=== PATIENT | female | born 1985 | race Caucasian/White ===

== ENCOUNTER → 2020-04-18 08:33 | Outpatient (CLI) | payer OTHER, SELFPAY ==
--- NOTE | ~2020-04-18 | MMUS_ITS ---
EXAMINATION: MM diagnostic tesfaye BI w serafin, US breast BI complete HISTORY: Bilateral breast tenderness, right greater than left TECHNIQUE: ML, MLO and craniocaudal 3-D tomosynthesis images of both breasts were performed and synth etic 2-D images were generated. Bilateral rotated lateral CC views..Bilateral magnification views. CA D analysis was submitted and interpreted. COMPARISON: None BREAST PARENCHYMAL COMPOSITION: The breasts are extremely dense, which lowers the sensitivity of mamm ography. MAMMOGRAM FINDINGS: There are numerous bilateral benign microcalcifications. No suspicious mammographic mass or architectural distortion, malignant calcification, skin thickening or retraction is detected. ULTRASOUND FINDINGS: Right prostate o'clock 3 cm from nipple: Parallel circumscribed septated cyst measuring 3.4 x 6.3 x 4 .6 mm. There is through transmission posterior enhancement, no internal vascularity. Left breast 1:00 3 cm from nipple: Parallel circumscribed hypoechoic 2 x 2.9 x 4.6 mm hypoechoic lesi on without suspicious shadowing. 6 month targeted left breast ultrasound follow-up is recommended. No suspicious mass or shadowing of either breast is evident. IMPRESSION: 1. Probable benign findings 2. Six-month targeted left breast ultrasound follow-up at 1:00 3 cm from nipple is recommended. BI-RADS category 3, probably benign findings. And ultrasound Reviewed, dictated and finalized at location A. CONSULTANT IMPRESSION: 1. Probable benign findings 2. Six-month targeted left breast ultrasound follow-up at 1:00 3 cm from nipple is recommended. BI-RADS category 3, probably benign findings. And ultrasound
== END ==
PROVIDERS: PCP Nurse Practitioner Family; Visit Provider Nurse Practitioner Family
DX: N64.4 Mastodynia (principal); R92.8 Other abnormal and inconclusive findings on diagnostic imaging of breast
CPT/HCPCS: 76641; 77062; 77066; G0279

== ENCOUNTER → 2020-10-17 08:58 | Outpatient (CLI) | payer OTHER, SELFPAY ==
--- NOTE | ~2020-10-17 | US_ITS ---
US breast LT limited 10/17/2020 09:19 Indication: Follow-up left breast mass Procedure: High-resolution ultrasound of the left breast, limited. Comparison: 04/18/2020 Findings: Stable oval circumscribed hypoechoic mass measuring 4 mm maximum dimension. No significant posterior features or internal vascularity. Impression: 1: Stable benign-appearing left breast mass. BI-RADS CATEGORY 3-PROBABLY BENIGN FINDING RECOMMENDATION: Six-month follow-up bilateral mammogram and limited left breast ultrasound. Reviewed, dictated and finalized at location A. Impression: 1: Stable benign-appearing left breast mass. BI-RADS CATEGORY 3-PROBABLY BENIGN FINDING RECOMMENDATION: Six-month follow-up bilateral mammogram and limited left breast ultrasound.
== END ==
PROVIDERS: PCP Nurse Practitioner Family; Visit Provider Nurse Practitioner Family
DX: N64.9 Disorder of breast, unspecified (principal); R92.8 Other abnormal and inconclusive findings on diagnostic imaging of breast
CPT/HCPCS: 76642